=== PATIENT | female | born 1960 | race Caucasian/White ===

== ENCOUNTER 2025-02-07 08:44 | Day surgery (SDC) | payer MEDICARE, BC ==
[~2025-02-07] VITALS: Ht 172.7 cm; Wt 59.0 kg
[~2025-02-07 08:44] MED LIST: ASHWAGANDHA PO; LIVER DETOX PO; MAGNESIUM PO; MULT-1085 PO; VITAMIN B PO; VITAMIN C PO; ringers solution, lacted 1,000 ML IV SCH
--- NOTE | 2025-02-07 09:51 | ELECTROCARDIOGRAPH REPORT ---
[facility] Test Date: 2025-02-07 Test Time: 09:47:30 Pat Name: MARGARET BARTON Department: [facility] Patient ID: [facility]-[id number] Room: Gender: F [employer]ucker: : 1960 Requested By: JULITO SAMSON Order Number: [id number] Reading MD: Dr. Adam Yap Measurements Intervals [place] Rate: 74 P: 68 VT: 144 QRS: 52 QRSD: 92 T: 59 QT: 392 QTc: 435 Interpretive Statements Sinus rhythm Electronically Signed On 02-08-2025 8:45:[address] Adam Yap Please click the below link to view image of tracing.
[2025-02-07] MEDS ORDERED: midazolam 1 mg/ML 2ml injection ONE (10:21)
[2025-02-07] MEDS ORDERED: propofol inj 20 ML IV ONE ×2 (10:31)
[2025-02-07 10:41] VITALS: BP 82/43; PULSE 72; RESP 16; O2SAT 100
[2025-02-07 10:50] VITALS: BP 85/42; PULSE 70; RESP 15; O2SAT 100
[2025-02-07 11:00] VITALS: BP 92/47; PULSE 60; RESP 13; O2SAT 99
[2025-02-07 11:10] VITALS: BP 96/42; PULSE 82; RESP 22; O2SAT 96
[2025-02-07 11:20] VITALS: BP 96/40; PULSE 68; RESP 15; O2SAT 100
== END 2025-02-07 11:21 | disposition home or self-care (01) ==
LOC: GI LAB 08:44
PROVIDERS: ATTEND Internal Medicine Gastroenterology
DX: Z12.11 Encounter for screening for malignant neoplasm of colon (principal); K64.8 Other hemorrhoids; E11.9 Type 2 diabetes mellitus without complications; I25.2 Old myocardial infarction; Z87.891 Personal history of nicotine dependence; Z79.899 Other long term (current) drug therapy; Z90.89 Acquired absence of other organs; Z98.890 Other specified postprocedural states
CPT/HCPCS: 82948; 93005; A4620; A6402; A7000; G0121; J2250; J2704; J7030; J7120; Z7512; Z7610; 45378; A6449